=== PATIENT | female | born 1940 | race Caucasian/White ===

== ENCOUNTER → 2016-06-27 12:58 | Outpatient (CLI) | payer MEDICARE, BC ==
[2014-07-27 06:58] VITALS: BMI 24.3
[~2016-06-27 12:58] MED LIST: BAYER CHEWABLE81 MG PO; LASIX20 MG PO; PRAVACHOL20 MG PO; PRILOSEC20 MG PO; SYNTHROID25 MCG PO
== END | disposition home or self-care (01) ==
LOC: D.CT 12:58
DX: I72.8 Aneurysm of other specified arteries (principal)